=== PATIENT | female | born 1955 | race American Indian/Alaskan Native ===

== ENCOUNTER 2020-04-01 16:20 | Emergency (ER) | payer MEDICARE, OTHER ==
--- NOTE | 2020-04-01 17:46 | Emergency Department Report ---
ED General Adult HPI - General Chief complaint: Back Pain/Injury Stated complaint: LOW BACK/ABDOMINAL PAIN/CONSTIPATED Time Seen by Provider: 04/01/20 17:33 Source: patient Mode of arrival: Ambulatory Limitations: No Limitations - History of Present Illness Initial comments: 65-year-old -[place] female urgency room for a 1 day history of lower b ack pain that radiates to her abdomen. Patient reports that the pain is worse with movement. Patient denies any injury. Patient states that she had vomited once last night and once today. Patient states lying down makes her back worse. Patient reports she last had a BM was on Friday. Patient states that she was seen by [facility] and was recommended to follow-up in the ER. Patient states that she recently had a medication adjustment of increasing her magnesium 400 mg to twice a day. Patient denies any injury. Patient denies any dysuria no hematuria no urinary frequency urgency or hematochezia. Patient does report having surgeries on her gallbladder has had ectopic a hysterectomy exploratory lap. Patient does have diabetes but has not checked her blood sugar in a while. She also denies any fever no chills. She reports that she was given some shot at [facility] but only last about 15 minutes and pain would return. Onset/Timin -: days(s) Location: back Radiation: abdomen Severity scale (0 -10): 10 Quality: sharp, constant Consistency: constant Improves with: none Worsens with: other (Lying down) Associated Symptoms: loss of appetite, nausea/vomiting (Vomited yesterday and today). denies: chest pain, cough, fever/chills, headaches, shortness of breath Treatments Prior to Arrival: other (Pain medication) - Related Data Home Medications Medication Instructions Recorded Confirmed Last Taken Aspirin EC [Halfprin EC] 81 mg PO DAILY 08/09/13 11/08/15 11/01/15 Clopidogrel Bisulfate [Plavix] 75 mg PO DAILY 08/09/13 11/08/15 11/01/15 Enalapril Maleate [Vasotec] 20 mg PO DAILY 08/09/13 11/09/15 11/08/15 09:00 Ezetimibe/Simvastatin [Vytorin 20 mg PO DAILY 08/09/13 11/09/15 11/08/15 09:00 10-10 mg] Metoprolol [Lopressor TAB] 50 mg PO BID 08/09/13 11/09/15 11/09/15 06:30 Triamter/Hctz 75-50 mg (Nf) 1 tab PO BID 08/09/13 11/09/15 11/08/15 09:00 [Maxzide 75-50 mg] amLODIPine 10 mg PO DAILY 08/09/13 11/09/15 11/09/15 06:30 Metformin HCl [metFORMIN ER] 1,000 mg PO QAM 04/05/14 11/09/15 04/11/14 cloNIDine [Catapres] 0.1 mg PO PRN PRN 04/05/14 11/08/15 04/11/14 metFORMIN XR [Glucophage XR] 500 mg PO BID 04/05/14 11/09/15 11/08/15 12:00 Losartan [Cozaar] 1 tab PO DAILY 11/09/15 11/09/15 11/09/15 06:30 Previous Rx's Medication Instructions Recorded Last Taken Type Acetaminophen [Acetaminophen TAB] 650 mg PO Q6HR PRN #20 tablet 08/09/13 11/08/15 20:00 Rx Allergies Allergy/AdvReac Type Severity Reaction Status Date / Time oxycodone HCl [From Percocet] Allergy Itching Verified 04/01/20 16:31 meperidine HCl [From Demerol] AdvReac Itching Verified 04/01/20 16:31 ED Review of Systems ROS: Stated complaint: LOW BACK/ABDOMINAL PAIN/CONSTIPATED Other details as noted in HPI Comment: All other systems reviewed and negative ED Past Medical Hx - Past Medical History Previous Medical History?: Yes Hx Hypertension: Yes Hx Heart Attack/AMI: Yes (1999) Hx Diabetes: Yes Hx Arthritis: Yes Hx Headaches / Migraines: Yes (past hx migraines) - Surgical History Past Surgical History?: Yes Hx Coronary Stent: Yes (X3) Hx Cholecystectomy: Yes Hx Breast Surgery: Yes (right breast mass removed) - Social History Smoking Status: Never Smoker - Medications Home Medications: Home Medications Medication Instructions Recorded Confirmed Last Taken Type Acetaminophen [Acetaminophen TAB] 650 mg PO Q6HR PRN #20 tablet 08/09/13 11/09/15 11/08/15 20:00 Rx Aspirin EC [Halfprin EC] 81 mg PO DAILY 08/09/13 11/08/15 11/01/15 History Clopidogrel Bisulfate [Plavix] 75 mg PO DAILY 08/09/13 11/08/15 11/01/15 History Enalapril Maleate [Vasotec] 20 mg PO DAILY 08/09/13 11/09/15 11/08/15 09:00 History Ezetimibe/Simvastatin [Vytorin 20 mg PO DAILY 08/09/13 11/09/15 11/08/15 09:00 History 10-10 mg] Metoprolol [Lopressor TAB] 50 mg PO BID 08/09/13 11/09/15 11/09/15 06:30 History Triamter/Hctz 75-50 mg (Nf) 1 tab PO BID 08/09/13 11/09/15 11/08/15 09:00 History [Maxzide 75-50 mg] amLODIPine 10 mg PO DAILY 08/09/13 11/09/15 11/09/15 06:30 History Metformin HCl [metFORMIN ER] 1,000 mg PO QAM 04/05/14 11/09/15 04/11/14 History cloNIDine [Catapres] 0.1 mg PO PRN PRN 04/05/14 11/08/15 04/11/14 History metFORMIN XR [Glucophage XR] 500 mg PO BID 04/05/14 11/09/15 11/08/15 12:00 History Losartan [Cozaar] 1 tab PO DAILY 11/09/15 11/09/15 11/09/15 06:30 History ED Physical Exam - General Limitations: No Limitations General appearance: alert, in no apparent distress - Head Head exam: Present: atraumatic, normocephalic - Eye Eye exam: Present: normal appearance - ENT ENT exam: Present: mucous membranes moist - Neck Neck exam: Present: normal inspection, full ROM - Respiratory Respiratory exam: Present: normal lung sounds bilaterally. Absent: chest wall tenderness, accessory muscle use - Cardiovascular Cardiovascular Exam: Present: regular rate, normal rhythm. Absent: systolic murmur, diastolic murmur, rubs, gallop - GI/Abdominal GI/Abdominal exam: Present: soft, tenderness. Absent: distended - Extremities Exam Extremities exam: Present: normal inspection, full ROM - Back Exam Back exam: Present: vertebral tenderness - Neurological Exam Neurological exam: Present: alert, oriented X3 - Psychiatric Psychiatric exam: Present: normal affect, normal mood - Skin Skin exam: Present: warm, dry, intact, normal color. Absent: rash ED Course Vital Signs 04/01/20 16:32 Temperature 98.0 F Pulse Rate 67 Respiratory 18 Rate Blood Pressure 192/87 O2 Sat by Pulse 97 Oximetry ED Medical Decision Making - Medical Decision Making 65-year-old -[place]i female urgency room for a 1 day history of lower back pain that radiates to her abdomen. Patient reports that the pain is worse with movement. Patient denies any injury. Patient states that she had vomited once last night and once today. Patient states lying down makes her back worse. Patient reports she last had a BM was on Friday. [facility] was recommended to follow-up in the ER. Patient states that she recently had a medication adjustment of increasing her magnesium 400 mg to twice a day. Patient denies any injury. Patient denies any dysuria no hematuria no urinary frequency urgency or hematochezia. Patient does report having surgeries on her gallbladder has had ectopic a hysterectomy exploratory lap. Patient does have diabetes but has not checked her blood sugar in a while. She also denies any fever no chills. She reports that she was given some shot at [facility] but only last about 15 minutes and pain would return. CBC CMP urinalysis KUB. Pending on labs and KUB may need to do a CT of abdomen and pelvis. Critical care attestation.: If time is entered above; I have spent that time in minutes in the direct care of this critically ill patient, excluding procedure time. ED Disposition Condition: Stable Referrals: PRIMARY CARE, [Primary Care Provider] - 3-5 Days
--- NOTE | 2020-04-01 18:27 | Event Note ---
ED Screening Note Date of service: 04/01/20 Time: 18:17 ED Screening Note: 65-year-old -Sy[place] female urgency room for a 1 day history of lower back pain that radiates to her abdomen. Patient reports that the pain is worse with movement. Patient denies any injury. Patient states that she had vomited once last night and once today. Patient states lying down makes her back worse. Patient reports she last had a BM was on Friday. Patient states that she was seen by [facility] and was recommended to follow-up in the ER. Patient states that she recently had a medication adjustment of increasing her magnesium 400 mg to twice a day. Patient denies any injury. Patient denies any dysuria no hematuria no urinary frequency urgency or hematochezia. Patient does report having surgeries on her gallbladder has had ectopic a hysterectomy exploratory lap. Patient does have diabetes but has not checked her blood sugar in a while. She also denies any fever no chills. She reports that she was given some shot at [facility] but only last about 15 minutes and pain would return. This initial assessment/diagnostic orders/clinical plan/treatment(s) is/are subject to change based on patients health status, clinical progression and re- assessment by fellow clinical providers in the ED. Further treatment and workup at subsequent clinical providers discretion. Patient/guardian urged not to elope from the ED as their condition may be serious if not clinically assessed and managed. Initial orders include:
--- NOTE | 2020-04-01 18:34 | XRay Report ---
ABDOMEN, SINGLE VIEW INDICATION / CLINICAL INFORMATION: abd pain and back pain. COMPARISON: None available. FINDINGS: Moderate amount retained stool is visualized throughout the colon without visible fecal impaction. Th e bowel gas pattern is otherwise normal. No obvious free air noted. No suspicious calcifications. IMPRESSION: Moderate amount retained stool suggesting constipation. No other significant finding. Signer Name: Ana Menard MD Signed: 04/01/2020 6:29 PM Workstation Name: [id number]
[2020-04-01 18:38] LABS: Hematocrit 39.3 % (30.3-42.9); Hemoglobin 12.7 gm/dl (10.1-14.3); Mean Corpuscular HGB Conc 32 % (30-34); Mean Corpuscular Volume 77 fl (79-97); Platelet Count 205 K/mm3 (140-440); Red Blood Count 5.08 M/mm3 (3.65-5.03); Red Cell Distribution Width 16.1 % (13.2-15.2)
[2020-04-01 18:54] LABS: Alanine Aminotransferase 13 units/L (7-56); Albumin 4.1 g/dL (3.9-5); BUN/Creatinine Ratio 19; Blood Urea Nitrogen 17 mg/dL (7-17); Calcium 9.1 mg/dL (8.4-10.2); Hemolysis Index 6
[2020-04-01 19:00] LABS: Bilirubin,Urine NEG (Negative); Blood,Urine MOD (Negative); Color,Urine Yellow (Yellow); Mucus,Urine FEW /HPF; Protein,Urine <15 mg/dL mg/dL (Negative); Urobilinogen,Urine < 2.0 mg/dL (<2.0)
[2020-04-01] MEDS ORDERED: ONDANSETRON 4 MG/2 ML INJ IV ONE (19:53)
[2020-04-01] MEDS ORDERED: fentaNYL 100 MCG/2 ML INJ IV ONE ×2 (19:54→21:35)
--- NOTE | 2020-04-01 20:00 | Emergency Department Report ---
ED Abdominal Pain HPI - General Chief Complaint: Back Pain/Injury Stated Complaint: LOW BACK/ABDOMINAL PAIN/CONSTIPATED Time Seen by Provider: 04/01/20 17:33 Source: patient Mode of arrival: Ambulatory Limitations: No Limitations - History of Present Illness Initial Comments: Patient is 65 years old female with history of hypertension. Patient presented to the ER complaining of left flank pain that radiated to the groin and suprapubic area. Patient stated that pain started last night. Patient stated that she went to a urgent care this morning and they asked her to come to the ER. Patient described her pain as sharp, constant 8 out of 10 with no radiation. Patient denied any fever or chills. Patient stated that she is nauseated but no vomiting. MD Complaint: abdominal pain, flank pain Location: suprapubic, L flank Quality: sharp - Related Data Home Medications Medication Instructions Recorded Confirmed Last Taken Aspirin EC [Halfprin EC] 81 mg PO DAILY 08/09/13 11/08/15 11/01/15 Clopidogrel Bisulfate [Plavix] 75 mg PO DAILY 08/09/13 11/08/15 11/01/15 Enalapril Maleate [Vasotec] 20 mg PO DAILY 08/09/13 11/09/15 11/08/15 09:00 Ezetimibe/Simvastatin [Vytorin 20 mg PO DAILY 08/09/13 11/09/15 11/08/15 09:00 10-10 mg] Metoprolol [Lopressor TAB] 50 mg PO BID 08/09/13 11/09/15 11/09/15 06:30 Triamter/Hctz 75-50 mg (Nf) 1 tab PO BID 08/09/13 11/09/15 11/08/15 09:00 [Maxzide 75-50 mg] amLODIPine 10 mg PO DAILY 08/09/13 11/09/15 11/09/15 06:30 Metformin HCl [metFORMIN ER] 1,000 mg PO QAM 04/05/14 11/09/15 04/11/14 cloNIDine [Catapres] 0.1 mg PO PRN PRN 04/05/14 11/08/15 04/11/14 metFORMIN XR [Glucophage XR] 500 mg PO BID 04/05/14 11/09/15 11/08/15 12:00 Losartan [Cozaar] 1 tab PO DAILY 11/09/15 11/09/15 11/09/15 06:30 Previous Rx's Medication Instructions Recorded Last Taken Type Acetaminophen [Acetaminophen TAB] 650 mg PO Q6HR PRN #20 tablet 08/09/13 11/08/15 20:00 Rx Allergies Allergy/AdvReac Type Severity Reaction Status Date / Time oxycodone HCl [From Percocet] Allergy Itching Verified 04/01/20 16:31 meperidine HCl [From Demerol] AdvReac Itching Verified 04/01/20 16:31 ED Review of Systems ROS: Stated complaint: LOW BACK/ABDOMINAL PAIN/CONSTIPATED Other details as noted in HPI Comment: All other systems reviewed and negative Constitutional: denies: chills, fever Cardiovascular: denies: chest pain, palpitations Gastrointestinal: abdominal pain, nausea, constipation. denies: vomiting, diarrhea, hematemesis, melena, hematochezia Musculoskeletal: back pain Neurological: denies: headache, weakness, numbness, paresthesias, confusion, abnormal gait ED Past Medical Hx - Past Medical History Previous Medical History?: Yes Hx Hypertension: Yes Hx Heart Attack/AMI: Yes (1999) Hx Diabetes: Yes Hx Arthritis: Yes Hx Headaches / Migraines: Yes (past hx migraines) - Surgical History Past Surgical History?: Yes Hx Coronary Stent: Yes (X3) Hx Cholecystectomy: Yes Hx Breast Surgery: Yes (right breast mass removed) - Social History Smoking Status: Never Smoker - Medications Home Medications: Home Medications Medication Instructions Recorded Confirmed Last Taken Type Acetaminophen [Acetaminophen TAB] 650 mg PO Q6HR PRN #20 tablet 08/09/13 11/09/15 11/08/15 20:00 Rx Aspirin EC [Halfprin EC] 81 mg PO DAILY 08/09/13 11/08/15 11/01/15 History Clopidogrel Bisulfate [Plavix] 75 mg PO DAILY 08/09/13 11/08/15 11/01/15 History Enalapril Maleate [Vasotec] 20 mg PO DAILY 08/09/13 11/09/15 11/08/15 09:00 History Ezetimibe/Simvastatin [Vytorin 20 mg PO DAILY 08/09/13 11/09/15 11/08/15 09:00 History 10-10 mg] Metoprolol [Lopressor TAB] 50 mg PO BID 08/09/13 11/09/15 11/09/15 06:30 History Triamter/Hctz 75-50 mg (Nf) 1 tab PO BID 08/09/13 11/09/15 11/08/15 09:00 History [Maxzide 75-50 mg] amLODIPine 10 mg PO DAILY 08/09/13 11/09/15 11/09/15 06:30 History Metformin HCl [metFORMIN ER] 1,000 mg PO QAM 04/05/14 11/09/15 04/11/14 History cloNIDine [Catapres] 0.1 mg PO PRN PRN 04/05/14 11/08/15 04/11/14 History metFORMIN XR [Glucophage XR] 500 mg PO BID 04/05/14 11/09/15 11/08/15 12:00 History Losartan [Cozaar] 1 tab PO DAILY 11/09/15 11/09/15 11/09/15 06:30 History ED Physical Exam - General Limitations: No Limitations General appearance: alert, in no apparent distress - Head Head exam: Present: atraumatic, normocephalic, normal inspection - Eye Eye exam: Present: normal appearance, PERRL - ENT ENT exam: Present: normal exam, normal orophraynx, mucous membranes moist - Neck Neck exam: Present: normal inspection, full ROM. Absent: tenderness, meningismus - Respiratory Respiratory exam: Present: normal lung sounds bilaterally. Absent: respiratory distress, wheezes, rales, rhonchi, stridor, chest wall tenderness, accessory muscle use, decreased breath sounds, prolonged expiratory - Cardiovascular Cardiovascular Exam: Present: regular rate, normal rhythm, normal heart sounds - GI/Abdominal GI/Abdominal exam: Present: soft, normal bowel sounds. Absent: distended, tenderness, guarding, rebound, rigid, organomegaly, mass, bruit, pulsatile mass, hernia - Extremities Exam Extremities exam: Present: normal inspection, full ROM, normal capillary refill. Absent: tenderness - Back Exam Back exam: Present: normal inspection, full ROM. Absent: tenderness, CVA tenderness (R), CVA tenderness (L) - Neurological Exam Neurological exam: Present: alert, oriented X3, CN II-XII intact, normal gait, reflexes normal. Absent: motor sensory deficit - Psychiatric Psychiatric exam: Present: normal mood - Skin Skin exam: Present: warm, intact, normal color ED Course Vital Signs 04/01/20 16:32 Temperature 98.0 F Pulse Rate 67 Respiratory 18 Rate Blood Pressure 192/87 O2 Sat by Pulse 97 Oximetry ED Medical Decision Making - Lab Data Result diagrams: 04/01/20 18:12 04/01/20 18:12 - Radiology Data Radiology results: report reviewed - Medical Decision Making Patient is 65 years old female with history of hypertension. Patient presented to the ER complaining of left flank pain that radiated to the groin and suprapubic area. Patient stated that pain started last night. Patient stated that she went to a urgent care this morning and they asked her to come to the ER. Patient described her pain as sharp, constant 8 out of 10 with no radiation. Patient denied any fever or chills. Patient stated that she is nauseated but no vomiting. Patient received fentanyl and Zofran. Patient stated that she is feeling much better and her pain is completely resolved. CT abdomen and pelvis showed a 3 mm obstructive ureteral stone with moderate hydronephrosis. Patient advised to follow-up with a urologist in the next 2 to 3 days and to return to the ER if she develop any new symptoms. Critical care attestation.: If time is entered above; I have spent that time in minutes in the direct care of this critically ill patient, excluding procedure time. ED Disposition Clinical Impression: Acute abdominal pain, Ureteric colic, Constipation Disposition: - TO HOME OR SELFCARE Is pt being admited?: No Condition: Stable Instructions: Kidney Stones, [id number], Renal Colic, [id number] Referrals: TARI MOTA MD [Primary Care Provider] - 3-5 Days JOSÉ MIGUEL STEWART MD [Staff Physician] - 3-5 Days
--- NOTE | 2020-04-01 20:54 | Cat Scan Report ---
CT abdomen pelvis w con INDICATION / CLINICAL INFORMATION: abdominal pain. TECHNIQUE: Routine CT abdomen and pelvis with contrast All CT scans at this location are performed using CT dose reduction for ALARA by means of automated exposure control. COMPARISON: None available. FINDINGS: There is moderate to severe right hydroureteronephrosis secondary to an obstructive calculus measurin g 3 mm in diameter at the right ureterovesical junction. The left kidney is unremarkable. Both adrenal glands are unremarkable. There is a small type I hiatal hernia. Within the left breast there is a 1.8 cm lesion that is adjacent to the skin surface. There is moderate intra and extrahepatic biliary dilatation with the common bile duct measuring up to 11 mm in diameter. No gallbladder is identified. The spleen is unremarkable Colonic diverticulosis noted. The appendix is grossly unremarkable. No bowel dilatation identified. U rinary bladder is unremarkable. The uterus is been surgically removed. Review of bone windows demonst rates thoracolumbar degenerative changes. Prominent atherosclerotic calcification throughout the abdo marcella aorta. IMPRESSION: 1. Moderate right hydroureteronephrosis secondary to an obstructive 3 mm calculus at the right ureter ovesical junction. 2. Common biliary dilatation may be at least partially secondary to prior cholecystectomy. No choledo cholithiasis appreciated. 3. Well-circumscribed low-density breast lesion adjacent to the lower inner aspect of the breast may represent a sebaceous cyst but is ultimately nonspecific. Clinical correlation/physical examination i s suggested. Signer Name: Teja Win MD Signed: 04/01/2020 8:49 PM Workstation Name: [id number]
[2020-04-01 21:52] VITALS: BP 134/67
== END 2020-04-01 22:27 | disposition home or self-care (01) ==
LOC: ED 16:20
DX: K59.00 Constipation, unspecified (principal); N23 Unspecified renal colic; I25.2 Old myocardial infarction; I10 Essential (primary) hypertension; E11.9 Type 2 diabetes mellitus without complications; M19.91 Primary osteoarthritis, unspecified site; Z90.49 Acquired absence of other specified parts of digestive tract; Z79.84 Long term (current) use of oral hypoglycemic drugs; Z79.899 Other long term (current) drug therapy; Z88.8 Allergy status to other drugs, medicaments and biological substances
CPT/HCPCS: 36415; 74018; 74177; 80053; 81001; 85027; 96374; 96375; 96376; 99284; J2405; J3010; Q9967

== ENCOUNTER 2020-10-12 08:31 | Outpatient (CLI) | payer MEDICARE, OTHER ==
--- NOTE | 2020-10-12 11:52 | Mammography Report ---
DIGITAL SCREENING MAMMOGRAM WITH CAD, 10/12/2020 CLINICAL INFORMATION / INDICATION: Routine screening mammography. SCREENING MAMMO Z12.31 TECHNIQUE: Digital bilateral 2D mammography was obtained in the craniocaudal and mediolateral obliqu e projections. This examination was interpreted with the benefit of Computer-Aided Detection analysis . COMPARISON: 10/11/2019, 09/21/2018. FINDINGS: Breast Density: There are scattered areas of fibroglandular density. No dominant mass, suspicious calcifications, or architectural distortion in either breast. IMPRESSION: No mammographic evidence of malignancy. Follow up recommendation: Routine yearly BI-RADS Category 1: Negative. A "normal" or negative report should not discourage follow up or biopsy of a clinically significant f inding. A written summary of these findings will be mailed to the patient. The patient will be entered into a mammography reporting system which will generate a reminder letter for the patient's next appointmen t at the appropriate interval. The [employer] recommends yearly mammograms starting at age 40 and continuing as l sinai as a woman is in good health. Breast MRI is recommended for women with an approximate 20-25% or greater lifetime risk of breast cancer, including women with a strong family history of breast or ova ester cancer or who have been treated for Hodgkin's disease. Signer Name: Bienvenido Townsend MD Signed: 10/12/2020 11:47 AM Workstation Name: [email or web address]
== END 2020-10-12 08:32 | disposition home or self-care (01) ==
LOC: SPVWC 08:31
PROVIDERS: ATTEND Surgery
DX: Z12.31 Encounter for screening mammogram for malignant neoplasm of breast (principal); N64.89 Other specified disorders of breast
CPT/HCPCS: 77067

== ENCOUNTER 2021-04-20 10:14 | Outpatient (CLI) | payer MEDICARE ==
--- NOTE | 2021-04-23 08:05 | Magnetic Resonance Report ---
. MR lumbar spine wo con INDICATION / CLINICAL INFORMATION: M47.816. TECHNIQUE: Multisequence, multiplanar images of the lumbar spine were obtained. COMPARISON: None available. FINDINGS: ALIGNMENT: Slight grade 1 degenerative anterolisthesis at L4-5. VERTEBRAE:No aggressive osseous marrow signal. Vertebral body heights are preserved. VISUALIZED SPINAL CORD: The conus appears within normal limits. [id number] ANALYSIS: L1-2: No significant spinal canal stenosis. No significant foraminal narrowing. L2-3: No significant spinal canal stenosis. No significant foraminal narrowing. Moderate bilateral fa cet DJD. L3-4: No significant spinal canal stenosis. No significant foraminal narrowing. Advanced bilateral fa cet DJD. L4-5: Mild left neural foraminal narrowing. Advanced bilateral facet DJD with right-sided facet joint effusion. L5-S1: No significant spinal canal stenosis. No significant foraminal narrowing. Moderate bilateral f acet DJD. PARASPINAL SOFT TISSUES: No significant abnormality. ADDITIONAL FINDINGS: None. IMPRESSION: Multilevel degenerative changes as described, predominantly facet DJD. Definitions used for the purposes of this report: Lumbar canal stenosis (Angelia et al. Br J Radiol. 2012;[id number]):[id number]): No stenosis: No attenuation of the CSF spaces Mild stenosis: Anterior CSF space mildly obliterated Moderate stenosis: Anterior CSF space is moderately obliterated; cauda equina partially aggregated Severe stenosis: Marked compression of the dural sac; cauda equina cannot be visually and a ppear as a bundle Lumbar lateral recess stenosis (Radha et al. World J Radiol. 2017 July 21;9(5):223-229): No stenosis: Nerve root is bathed in fluid Mild stenosis: Narrowing of the lateral recess without root deviation Moderate stenosis: Narrowing of the recess with nerve root deviation Severe stenosis: Compression of the nerve root Lumbar neural foraminal stenosis (Edmond et al. AJR Am J Roentgenol. 2010 May;194(4):1095-8): No stenosis: No attenuation of the fat in the foramen Mild stenosis: Loss of the fat in the foramen on two sides Moderate stenosis: Loss of the fat in the foramen all four sides Severe stenosis: Loss of the fat in the foramen all four sides and compression of the nerve root Signer Name: Dipak Osei MD Signed: 04/23/2021 8:01 AM Workstation Name: [id number]
== END 2021-04-20 10:15 | disposition home or self-care (01) ==
LOC: MRI 10:14
DX: M47.816 Spondylosis without myelopathy or radiculopathy, lumbar region (principal); M48.061 Spinal stenosis, lumbar region without neurogenic claudication
CPT/HCPCS: 72148